=== PATIENT | male | born 1965 | race African-American/Black ===

== ENCOUNTER 2025-05-15 23:58 | Inpatient (IN) | payer MEDICARE, OTHER ==
[~2025-05-15] VITALS: Ht 188 cm; Wt 99.8 kg
[2025-05-16 00:35] LABS: PLATELET COUNT (AUTO) 230 K/uL (150-450); RED BLOOD CELL COUNT(AUTO) 5.75 MIL/uL (4.5-6.0); RED CELL DISTRIBUTION WIDTH 15.0 % (11.5-15.0); WHITE BLOOD COUNT (AUTO) 8.1 K/uL (4.3-11.0)
[2025-05-16 00:42] LABS: APPEARANCE,URINE CLEAR (CLEAR); BLOOD, URINE TRACE-INTA Ery/uL (NEGATIVE); LEUKOCYTE ESTERASE ,URINE NEGATIVE (NEGATIVE); NITRITE, URINE NEGATIVE (NEGATIVE); UGLUCOSE NEGATIVE (NEGATIVE)
[2025-05-16 00:51] LABS: CALCIUM, SERUM 8.8 mg/dL (8.5-10.1); CREATININE 0.9 mg/dL (0.6-1.3); SODIUM SERUM 139 mmol/L (136-145); UREA NITROGEN, BLOOD 11 mg/dL (7-18)
[2025-05-16 00:55] LABS: AMPHETAMINE, URINE NEGATIVE (NEGATIVE); BARBITURATE, URINE NEGATIVE (NEGATIVE); CANNABINOID, URINE NEGATIVE (NEGATIVE); COCCAINE, URINE NEGATIVE (NEGATIVE); OPIATE, URINE NEGATIVE (NEGATIVE)
[2025-05-16 00:56] LABS: ADD URINE CULTURE NO; BENZODIAZEPINE, URINE POSITIVE (NEGATIVE); SQUAMOUS EPITHELIAL CELL,UR Few /HPF (None Seen)
[2025-05-16 00:58] LABS: ALCOHOL, BLOOD < 3 mg/dL (0-10); ASPARTATE AMINOTRANSFERASE 20 U/L (15-37); TOTAL PROTEIN, SERUM 7.8 g/dL (6.4-8.2)
[2025-05-16] MEDS ORDERED: LORAZEPAM 0.5 MG TABLET PO PRN (04:00)
[2025-05-16] MEDS ORDERED: ACETAMINOPHEN 325 MG TABLET PO PRN (04:00)
[2025-05-16] MEDS ORDERED: MAGNESIUM HYDROXIDE 30 ML UDC PO PRN (04:00)
[2025-05-16] MEDS ORDERED: ZOLPIDEM TARTRATE 5 MG TABLET PO PRN (04:00)
[2025-05-16] MEDS: BLOOD SUGAR DIAGNOSTIC 1 EACH STRIP IN ONE (04:11)
[2025-05-16 04:15] VITALS: BP 140/94; TEMP 98.4; O2SAT 96
[2025-05-16 08:00] VITALS: BP 131/92; TEMP 98; O2SAT 97
[2025-05-16] MEDS ORDERED: BISA10SU11 RC (08:04)
[2025-05-16] MEDS ORDERED: TEMA30CA PO (08:04)
[2025-05-16] MEDS ORDERED: MAGN400O6 PO (08:04)
[2025-05-16] MEDS ORDERED: LOSA50TA39 PO (08:04)
[2025-05-16] MEDS ORDERED: ATOR20TA PO (08:04)
[2025-05-16] MEDS ORDERED: FAMO20TA80 PO (08:04)
[2025-05-16] MEDS ORDERED: ERGO500040 PO (08:04)
[2025-05-16] MEDS ORDERED: CLON0.5T PO (08:04)
[2025-05-16] MEDS: LORAZEPAM 1 MG TABLET PO PRN (08:57)
[2025-05-16] MEDS: PAROXETINE HCL 20 MG TABLET PO SCH (11:57)
[2025-05-16 16:00] VITALS: BP 117/75; TEMP 98.6; O2SAT 100
[2025-05-16] MEDS: FAMOTIDINE (20 MG) 20 MG TABLET PO SCH (16:47)
[2025-05-16] MEDS: IBUPROFEN 400 MG TABLET PO PRN (19:30)
[2025-05-16 20:16] VITALS: BP 126/76; TEMP 98.4; O2SAT 99
[2025-05-16] MEDS: ATORVASTATIN 40 MG TABLET PO SCH (21:04)
[2025-05-16] MEDS: TRAZODONE 50 MG TABLET PO PRN (21:08)
[2025-05-17 08:00] VITALS: BP 126/95; TEMP 98.7; O2SAT 96
[2025-05-17 08:14] LABS: ASPARTATE AMINOTRANSFERASE 21.0 U/L (15-37); CALCIUM, SERUM 8.7 mg/dL (8.5-10.1); CREATININE 0.9 mg/dL (0.6-1.3); SODIUM SERUM 139.0 mmol/L (136-145); TOTAL PROTEIN, SERUM 7.0 g/dL (6.4-8.2); UREA NITROGEN, BLOOD 10.0 mg/dL (7-18)
[2025-05-17] MEDS: LOSARTAN POTASSIUM 50 MG TABLET PO SCH (08:28)
[2025-05-17 09:20] LABS: LDL 53 mg/dL (0-99)
[2025-05-17] MEDS: MAG HYDROX/AL HYDROX/SIMETH 30 ML UDC PO PRN (14:12)
[2025-05-17 16:00] VITALS: BP 128/90; TEMP 98; O2SAT 99
[2025-05-17] MEDS: OLANZAPINE 2.5 MG TABLET PO SCH (16:16)
[2025-05-17] MEDS: TEMAZEPAM 15 MG CAPSULE PO PRN (21:47)
[2025-05-18 07:48] LABS: IRON, SERUM 46 ug/dl (50-175)
[2025-05-18 08:00] VITALS: BP 120/86; TEMP 97.7; O2SAT 98
[2025-05-18 16:04] VITALS: BP 107/66; TEMP 98.2; O2SAT 97
[2025-05-18 20:00] VITALS: BP 106/70; TEMP 97.9; O2SAT 97
[2025-05-18 22:55] VITALS: BP 106/70; TEMP 97.9; O2SAT 97
[2025-05-19 08:00] VITALS: BP 130/91; TEMP 98; O2SAT 95
[2025-05-19 16:00] VITALS: BP 134/87; TEMP 97.9; O2SAT 100
[2025-05-19 20:15] VITALS: BP 120/80; TEMP 97.8; O2SAT 98
[2025-05-20 08:00] VITALS: BP 119/77; TEMP 98.1; O2SAT 99
[2025-05-20 16:00] VITALS: BP 101/70; TEMP 98.2; O2SAT 98
[2025-05-20 20:16] VITALS: BP 124/72; TEMP 98.2; O2SAT 99
[2025-05-21 08:00] VITALS: BP 132/80; TEMP 97.8; O2SAT 97
[2025-05-21] MEDS: OLANZAPINE 2.5 MG TABLET PO SCH (09:21)
[2025-05-21 16:00] VITALS: BP 121/71; TEMP 98.4; O2SAT 96
[2025-05-21 20:00] VITALS: BP 111/64; TEMP 98.9; O2SAT 100
[2025-05-21 20:21] VITALS: BP 111/64; TEMP 98.9; O2SAT 100
[2025-05-22 08:00] VITALS: BP 152/95; TEMP 97.8; O2SAT 98
[2025-05-22 16:03] VITALS: BP 129/88; TEMP 98.6; O2SAT 97
[2025-05-22 19:56] VITALS: BP 120/65; TEMP 98.5; O2SAT 100
[2025-05-23 08:14] VITALS: BP 139/100; TEMP 98.4; O2SAT 96
[2025-05-23 13:20] VITALS: BP 136/92; TEMP 98; O2SAT 97
== END 2025-05-23 13:00 | DRG 885 ==
LOC: ER 05-16 00:09 → GPS 05-16 03:22 → MED 05-22 23:00 → GPSOV 05-22 23:15
PROVIDERS: ADMIT Psychiatry & Neurology Psychiatry; ATTEND Nurse Practitioner Acute Care
DX: F25.9 Schizoaffective disorder, unspecified (principal); F29 Unspecified psychosis not due to a substance or known physiological condition; I10 Essential (primary) hypertension; F41.1 Generalized anxiety disorder; Z87.891 Personal history of nicotine dependence; M17.0 Bilateral primary osteoarthritis of knee; R73.03 Prediabetes; K21.9 Gastro-esophageal reflux disease without esophagitis; D50.9 Iron deficiency anemia, unspecified; E78.5 Hyperlipidemia, unspecified; F22 Delusional disorders; F32.A Depression, unspecified; F13.10 Sedative, hypnotic or anxiolytic abuse, uncomplicated
CPT/HCPCS: 36415; 80048-TC; 80053-TC; 80061-TC; 80076-TC; 81001; 82962-TC; 83540-TC; 85025-TC; 87081-TC; G0480; Q0177